=== PATIENT | female | born 1980 | race Caucasian/White ===

== ENCOUNTER → 2021-04-27 | Day surgery (SDC) | payer OTHER ==
[~2021-04-27] MED LIST: HYDROCODONE-AC1 EACH PO; IBUPROFEN600 MG PO; MINI PRENATAL1 EACH PO; TYLENOL325 MG PO; VENTOLIN/PROVE0.5 ML INH
[2021-04-27 13:02] LABS: RED BLOOD COUNT 4.02 M/UL (4.00-5.10)
== END | disposition home or self-care (01) ==
LOC: OR 08:45
PROVIDERS: Obstetrics & Gynecology
DX: O02.1 Missed abortion (principal); J44.9 Chronic obstructive pulmonary disease, unspecified; E66.01 Morbid (severe) obesity due to excess calories; F17.210 Nicotine dependence, cigarettes, uncomplicated; Z79.899 Other long term (current) drug therapy; Z20.822 Contact with and (suspected) exposure to COVID-19
CPT/HCPCS: 81001; 85025; 86850; 86900; 86901; J1100; J1170; J2001; J2250; J2405; J2704; J2790; J3010; J7030; J7120; U0002